=== PATIENT | male | born 1990 | race Caucasian/White ===

== ENCOUNTER 2025-04-14 13:23 | Emergency (ER) | payer BC, SELFPAY ==
--- OUTSIDE RECORDS SUMMARY | 2025-04-14 13:24 | XMS_ITS | Clinical Summary ---
Author Organization [facility] Address [address] [place] [id number] Care Team Providers Care Biomass Facilitator Name Role Phone Pcp, No Primary Care Provider Unavailabl e Allergies Active AllergyReactionsCriticalityNoted DateCommentsAmoxicillin*Unknown - Childhood Rxn09/06/2015 Medications No known medications Active Problems No known active problems Family History Medical HistoryRelationNameCommentsGood HealthFatherGood HealthMotherRelation NameStatusCommentsFatherMother Social History Tobacco UseTypesPacks/DayYears UsedDateSmoking Tobacco: NeverSmokeless Tobacco: Never Tobacco Cessation:Counseling Given: Yes Alcohol UseStandard Drinks/WeekCommentsYes0 (1 standard drink = 0.6 oz pure alcohol)Minimal use every few monthsSocial ConnectionsAnswerDate RecordedDo you often feel lonely or isolated from those around you?Financial Resource StrainAnswerDate RecordedDifficulty of Paying Living Expenses3 09/07/2024Difficulty of Paying Living ExpensesNot on file09/07/2024Food InsecurityAnswerDate RecordedDo you worry your food will run out before you are able to buy more?Transportation NeedsAnswerDate RecordedDoes lack of transportation keep you from medical appointments?Does lack of transportation keep you from work, meetings or getting things that you need?1 09/07/2024Housing StabilityAnswerDate RecordedWhat is your housing situation today?UtilitiesAnswerDate RecordedDo you have trouble paying for utilities (for example, heat, electricity, water, phone)?Sex and Gender InformationValueDate RecordedSex Assigned at BirthNot on fileLegal Sex Male05/04/2010 7:01 AM CSTGender IdentityNot on fileSexual OrientationNot on fileOccupationIndustryJob Start DateJob End Dateretail/schoolNot on fileNot on fileNot on file Last Filed Vital Signs Vital SignReadingTime TakenCommentsBlood Vvbvhzkg425/98009/07/2024 3:50 PM CDT iyxscdoXxths5662/20/2025 3:47 PM DZCSekjhrjyubh02.7 ??C (98 ??F)09/06/2015 8:24 AM CDTRespiratory Rate--Oxygen Puetyvzlui01%09/07/2024 3:47 PM CDTInhaled Oxygen Concentration--Lasjsb196 kg (233 lb 9.6 oz)09/07/2024 3:47 PM NBRByxboq342.3 cm (5' 11)09/06/2015 8:24 AM CDTBody Mass Index32.58009/06/2015 8:24 AM CDT Plan of Treatment Health MaintenanceDue DateLast DoneCommentsTetanus asgjoiu8912/22/2003HIV for age 15-65012/22/2007Hepatitis C screening for age 18-7912/21/2010Hepatitis B series for 19+ (1 of 3 - 19+ 3-dose series)12/22/2011MI (ht and wt on same day) for age 18+Depression screening for age 12+ HPV series for age 9-45 (1 - 3-dose SCDM series)12/22/2019COVID-19 vaccine series ( - 2024- season)/07/2020, 09/01/2020Influenza Vaccine (#1)2024Pneumococcal series for age 6-49Aged OutNo longer eligible based on patient's age to complete this topic Insurance Care Teams Team MemberRelationshipSpecialtyStart DateEnd Date Pcp, No PCP - General09/11/20
[2025-04-14 13:35] VITALS: BP 179/92; PULSE 82; RESP 18; TEMP 36.2; O2SAT 100
--- NOTE | 2025-04-14 13:59 | ED_ITS ---
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 He was chopping on a tree about a week ago lifted some pretty heavy logs since about that time he has had some cervical spine pain and gets occasional low back pain, the patient has had a history of 3 episodes of neck pain over the last year, he gets occasional sciatic pain low back pain as well but that isn't so bad right now. He has not done any medications or PT, no injections, no advanced imaging. He has had no significant trauma. Related Data Home Medications ?Medication ?Instructions ?Recorded ?Confirmed No Known Home Medications 12/12/2103/22 Allergies Allergy/AdvReac Type Severity Reaction Status Date / Time amoxicillin Allergy Unknown Verified 04/14/25 13:39 Review of Systems Status of ROS: Reports: 6 or more systems reviewed and unremarkable except as noted in History and below PFSH PFSH Social History Smoking Status: Never smoker Exam Narrative: Exam Narrative: Objective: The patient has fairly full range of motion is neck, describes pain in his trapezius muscles bilaterally, no effect to his arms. Const: Vital Signs, click to edit/add: Vital Signs - 24 hr 04/14/25 13:35 Temperature 97.2 F L Pulse Rate [Right Pulse Oximeter] 82 Respiratory Rate 18 Blood Pressure [Ri ght Forearm] 179/92 H Pulse Oximetry 100 Oxygen Delivery Me thod Room Air Course Vital Signs Vital signs: Initial Vital Signs Temperature 97.2 F L 04/14/25 13:35 Temperature Source Temporal Artery Scan 04/14/25 13:35 Pulse Rate 82 04/14/25 13:35 Pulse Rhythm Regular 04/14/25 13:35 Pulse Strength 3+ Normal 04/14/25 13:35 Respiratory Rate 18 04/14/25 13:35 Blood Pressure 179/92 H 04/14/25 13:35 Blood Pressure Mean 121 H 04/14/25 13:35 Blood Pressure Position Sitting 04/14/25 13:35 Pulse Oximetry 100 04/14/25 13:35 Oxygen Delivery Method Room Air 04/14/25 13:35 Vital Signs Temperature 97.2 F L 04/14/25 13:35 Pulse Rate 82 04/14/25 13:35 Respiratory Rate 18 04/14/25 13:35 Blood Pressure 179/92 H 04/14/25 13:35 Pulse Oximetry 100 04/14/25 13:35 Oxygen Delivery Method Room Air 04/14/25 13:35 Temperature 97.2 F L 04/14/25 13:35 Pulse Rate 82 04/14/25 13:35 Respiratory Rate 18 04/14/25 13:35 Blood Pressure 179/92 H 04/14/25 13:35 Pulse Oximetry 100 04/14/25 13:35 Oxygen Delivery Method Room Air 04/14/25 13:35 Medical Decision Making MDM Narrative Medical decision making narrative: [age] year white male with cervical spine paraspinous pain, without radiculitis. At this point I would recommend the following for the patient. Would give him a prednisone 20 mg b.i.d. for 5 days, will give him Toradol 10 mg q.i.d. for 3 days to use p.r.n.. 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 No written that affect. Would have him also set up for physical therapy for neck and back program where he could do 2 times a week for 6-9 weeks for core strengthening. This will be set up for a PT department in [place]. I have given him an order for this. He feels improved could be seen in the spine clinic. Discharge Plan Discharge Clinical Impression: Cervical spine pain Patient Disposition: Home, Self-Care Condition: Stable Additional Instructions: Off work for 3 days, recommend physical therapy this will be ordered for you, medications as dispensed. Return if problems or concerns. Activity Level: Light activity Discharge Diet: Regular Prescriptions: No Action No Known Home Medications Follow Up/Referrals: Provider,Not a Local [Primary Care Provider, Family Practice] Stand Alone Forms: [employer] Info Instructions
== END 2025-04-14 14:12 | disposition home or self-care (01) ==
LOC: ED 14:04
PROVIDERS: Emergency Provider Family Medicine
DX: M54.2 Cervicalgia (principal)
CPT/HCPCS: 99283; 99284